=== PATIENT | male | born 2000 | race Caucasian/White ===

== ENCOUNTER 2023-11-26 19:14 | Emergency (ER) | payer OTHER, SELFPAY ==
[~2023-11-26] VITALS: Ht 175.3 cm; Wt 66.5 kg
[2023-11-26 20:58] VITALS: BP 131/78; TEMP 97.1; O2SAT 99
== END 2023-11-26 20:59 | disposition home or self-care (01) ==
LOC: M ED 19:14
DX: J01.90 Acute sinusitis, unspecified (principal); R51.9 Headache, unspecified; Z91.040 Latex allergy status

== ENCOUNTER 2023-11-30 15:24 | Emergency (ER) | payer OTHER ==
[~2023-11-30] VITALS: Ht 175.3 cm; Wt 64.1 kg
[2023-11-30 16:07] LABS: BASO # 0.1 10^3/uL (0.0-0.2); EOS # 0.1 10^3/uL (0.0-0.5); EOS % 1.7 % (0.0-3.0); HEMATOCRIT 39.5 % (42.0-52.0); HEMOGLOBIN 14.2 g/dl (13.5-17.5); LYMPH # 1.7 10^3/uL (1.5-5.0); LYMPH % 28.6 % (24.0-44.0); MEAN CORPUSCULAR HEMOGLOBIN 31.8 pg (27.0-33.0); MEAN CORPUSCULAR HGB CONC 35.9 g/dl (32.0-36.5); MEAN CORPUSCULAR VOLUME 88.4 fl (80.0-96.0); MONO # 0.4 10^3/uL (0.0-0.8); MONO % 6.5 % (2.0-8.0); NEUTROPHILS # 3.7 10^3/uL (1.5-8.5); PLATELET COUNT, AUTOMATED 210 10^3/uL (150-450); RED BLOOD COUNT 4.47 10^6/uL (4.30-6.10)
[2023-11-30 16:20] LABS: INR 1.1; PROTHROMBIN TIME 13.8 SECONDS (12.5-14.5)
[2023-11-30 16:32] LABS: LIPASE 28 U/L (12-53)
[2023-11-30 16:34] LABS: CPK CREATINE PHOSPHOKINASE 92 U/L (46-171)
[2023-11-30 16:35] LABS: ALBUMIN 4.2 G/DL (3.2-5.2); ALKALINE PHOSPHATASE 41 U/L (46-116); ALT/SGPT 23 U/L (7.0-40); AST/SGOT 16 U/L (<34); BILIRUBIN,DIRECT 0.3 MG/DL (<0.4); BILIRUBIN,TOTAL 0.9 MG/DL (0.3-1.2); BLOOD UREA NITROGEN 9 MG/DL (9-23); CALCIUM LEVEL 9.2 MG/DL (8.5-10.1); CARBON DIOXIDE LEVEL 25 MMOL/L (20-31); CHLORIDE LEVEL 104 MMOL/L (98-107); CK-MB VALUE MASS < 1.0 NG/ML (<3.6); GLOMERULAR FILTRATION RATE > 60.0 (>60); GLUCOSE, FASTING 94 MG/DL (60-100); MB/CK RELATIVE INDEX 1.08 (< OR =4); POTASSIUM SERUM 3.5 MMOL/L (3.5-5.1); SODIUM LEVEL 139 MMOL/L (136-145); TOTAL PROTEIN 6.8 G/DL (5.7-8.2)
[2023-11-30 16:45] VITALS: TEMP 98.8
[2023-11-30] MEDS: NS 1,000 ML IV ONE (18:19)
[2023-11-30 18:28] LABS: CK-MB VALUE MASS < 1.0 NG/ML (<3.6)
[2023-11-30 18:29] LABS: CPK CREATINE PHOSPHOKINASE 86 U/L (46-171); MB/CK RELATIVE INDEX 1.16 (< OR =4)
[2023-11-30 19:00] VITALS: BP 113/62; O2SAT 100
== END 2023-11-30 19:58 | disposition home or self-care (01) ==
LOC: M ED 15:24
DX: R55 Syncope and collapse (principal); I95.1 Orthostatic hypotension; Z91.040 Latex allergy status